=== PATIENT | male | born 1955 | race Caucasian/White ===

== ENCOUNTER 2017-07-13 20:09 | Emergency (ER) | payer BC ==
[~2017-07-13] VITALS: Ht 182.9 cm; Wt 106.8 kg
[2017-07-13 20:13] VITALS: Ht 182.9 cm; Wt 106.8 kg
[2017-07-13] MEDS ORDERED: FLUORESCEIN STRIP RIGHT EYE ONE (20:30)
[2017-07-13 22:16] LABS: BASOPHIL # 0.1 10^3/ul (0.0-0.1); BASOPHILS % 0.6 % (0.0-2.0); EOSINOPHILS # 0.4 10^3/ul (0.0-0.5); EOSINOPHILS % 3.1 % (0.0-7.0); HEMOGLOBIN 15.4 g/dl (14.0-18.0); LYMPHOCYTES # 3.6 10^3/ul (0.8-2.9); LYMPHOCYTES % 29.8 % (15.0-51.0); MEAN CORPUSCULAR HEMOGLOBIN 30.6 pg (29.0-33.0); MEAN CORPUSCULAR HGB CONC 34.2 g/dl (32.0-37.0); MEAN CORPUSCULAR VOLUME 89.3 fl (82.0-101.0); MEAN PLATELET VOLUME 9.4 fl (7.4-10.4); MONOCYTE # 0.8 10^3/ul (0.3-0.9); MONOCYTES % 6.5 % (0.0-11.0); NEUTROPHIL # 7.2 10^3/ul (1.6-7.5); NEUTROPHILS % 59.7 % (39.0-77.0); PLATELET COUNT 240 10^3/UL (140-415); RED BLOOD COUNT 5.04 10^6/ul (4.70-6.10); WHITE BLOOD COUNT 12.1 10^3/ul (4.8-10.8)
[2017-07-13 22:30] LABS: INR 0.99; PROTIME 13.1 Sec (12.2-14.2)
[2017-07-13 22:33] LABS: CALCIUM 9.9 mg/dl (8.4-10.2); CREATININE 0.94 mg/dl (0.61-1.24); POTASSIUM 3.8 mmol/L (3.5-5.1)
--- NOTE | 2017-07-13 22:48 | RADRPT ---
PROCEDURE: US orbits. CLINICAL INDICATION: Visual disturbance with no visual acuity loss or visual field loss. TECHNIQUE: High-resolution sonography of the orbits was performed in the axial and sagittal planes . COMPARISON: None. FINDINGS: There is a linear region of echogenicity posteriorly in the right globe which may be due to retinal detachment or posterior vitreous detachment. There is adjacent vitreous hemorrhage. On the left side, there is no evidence of retinal detachment. However, there are regions of increase d echogenicity posteriorly within the posterior chamber consistent with vitreous hemorrhage. IMPRESSION: 1. Right-sided retinal detachment or posterior vitreous detachment. There is adjacent vitreous hem orrhage. 2. Vitreous hemorrhage on the left with no evidence of retinal detachment. 3. Ophthalmology consultation is advised. Call report: A call report of the findings was made to Dr. Banuelos on 07/13/2017 at 2040 hours RPTAT: QQ .Evaristo Pierce MD, MD Date Time Electronically viewed and signed by .Evaristo Pierce MD, MD on 07/13/2017 22:48 .R/
--- NOTE | 2017-07-13 23:10 | ERD ---
ER Documentation Chief Complaint Date/Time DATE: 07/13/17 TIME: 22:43 Chief Complaint RIGHT CORNER EYE IRRITATION HPI 61-year-old man presents with scintillating scotoma to the peripheral visual field of the right eye lasting for a few seconds multiple times over the course of 3 hours. Last episode occurred at about 7 PM this evening which was about an hour prior to arrival. Patient denies further episodes. He described flickering lights or photo flashes on his right side, and denies previous episodes. Patient denies pain to the eye, no blurry vision, no headache, no neck pain, no difficulty speaking, no weakness in his upper or lower extremities , no difficulty ambulating. Patient denies history of migraines, denies anticoagulant or antiplatelet usage, denies recent Valsalva type maneuvers. Patient is currently asymptomatic. Patient denies chest pain or shortness of breath, no vomiting or nausea, no diarrhea, no abdominal pain. ROS All systems reviewed and are negative except as per history of present illness. Allergies Allergies: Coded Allergies: No Known Allergy (Unverified , 07/13/17) PMhx/Soc Hypertension, wears corrective eyeglasses History of Surgery: No Anesthesia Reaction: No Hx Neurological Disorder: No Hx Respiratory Disorders: No Hx Cardiac Disorders: Yes (HTN) Hx Psychiatric Problems: No Hx Miscellaneous Medical Probl: No Hx Alcohol Use: Yes Hx Substance Use: No Hx Tobacco Use: No Smoking Status: Unknown if ever smoked FmHx Family History: No diabetes Physical Exam Vitals Vital Signs Date Time Temp Pulse Resp B/P Pulse Ox O2 Delivery O2 Flow Rate FiO2 07/13/17 20:13 98.8 73 17 121/92 97 Physical Exam GENERAL: Well-developed, well-nourished, well-hydrated, in no apparent distress , looks nontoxic in appearance HEENT: Moist mucous membranes, pink conjunctiva, no cervical spine tenderness or step-off deformities, no goiter, no jaundice or icterus, extraocular movements intact without pain. No submandibular induration, and no pharyngeal erythema NEURO: Alert and oriented 3, cranial nerves II through XII intact bilaterally, pupils equal round reactive to light, no focal deficits or facial asymmetry, sensation intact distally Strength 5/5 in upper and lower extremities bilaterally CARDIAC: Regular rate and rhythm, no murmurs rubs or gallops LUNGS: Clear bilaterally no wheezing crackles or stridor ABDOMEN: Soft nontender, no guarding, no rigidity, no rebound, no psoas sign no obturator sign. Normoactive bowel sounds SKIN: Warm and dry to touch, no abrasions, contusions, or hematomas, no lacerations, no ecchymosis, no target lesions, and without ulcers EXTREMITIES: No clubbing cyanosis or edema, calves are bilaterally symmetrical, no Homans sign, no popliteal cord sign. Distal pulses equal and bilateral PSYCH: Normal affect without agitation or irritability Result Diagram: 07/13/17214607/13/172146 Results 24 hrs Laboratory Tests Test 07/13/17 21:47 White Blood Count 12.110^3/ul Red Blood Count 5.0410^6/ul Hemoglobin 15.4g/dl Hematocrit 45.0% Mean Corpuscular Volume 89.3fl Mean Corpuscular Hemoglobin 30.6pg Mean Corpuscular Hemoglobin Concent 34.2g/dl Red Cell Distribution Width 13.0% Platelet Count 55110^3/UL Mean Platelet Volume 9.4fl Neutrophils % 59.7% Lymphocytes % 29.8% Monocytes % 6.5% Eosinophils % 3.1% Basophils % 0.6% Nucleated Red Blood Cells % 0.0/100WBC Neutrophils # 7.210^3/ul Lymphocytes # 3.610^3/ul Monocytes # 0.810^3/ul Eosinophils # 0.410^3/ul Basophils # 0.110^3/ul Nucleated Red Blood Cells # 0.010^3/ul Prothrombin Time 13.1Sec Prothrombin Time Ratio 1.0 INR International Normalized Ratio 0.99 Sodium Level 139mmol/L Potassium Level 3.8mmol/L Chloride Level 105mmol/L Carbon Dioxide Level 26mmol/L Anion Gap 12 Blood Urea Nitrogen 14mg/dl Creatinine 0.94mg/dl Glucose Level 116mg/dl Calcium Level 9.9mg/dl Current Medications Medications (Trade) Dose Ordered Sig/Jim Route PRN Reason Start Time Stop Time Status Last Admin Dose Admin Fluorescein Sodium (Xgpxl-L-[id number]) 1 strip ONCE ONCE RIGHT EYE 07/13/17 20:30 07/13/17 20:33 DC Procedures/MDM Visual acuity was formally assessed, visual acuity 20/25 bilaterally. Extraocular movements intact without pain. I performed funduscopic examination of both eyes. Fundus was difficult to visualize but there were no hard yellow exudates visible, vascular fullness was appreciated especially on the right with obvious RBCs in the vitreous, less so on the left. I ordered ultrasound of the orbits: Patient Name Stew Anand Study Date 07/13/2017 8:56 PM Patient 1955 Accession No. [id number] Referring Physician Enrico Bernstein PROCEDURE: US orbits. CLINICAL INDICATION: Visual disturbance with no visual acuity loss or visual field loss. TECHNIQUE: High-resolution sonography of the orbits was performed in the axial and sagittal planes. COMPARISON: None. FINDINGS: There is a linear region of echogenicity posteriorly in the right globe which may be due to retinal detachment or posterior vitreous detachment. There is adjacent vitreous hemorrhage. On the left side, there is no evidence of retinal detachment. However, there are regions of increased echogenicity posteriorly within the posterior chamber consistent with vitreous hemorrhage. IMPRESSION: 1. Right-sided retinal detachment or posterior vitreous detachment. There is adjacent vitreous hemorrhage. 2. Vitreous hemorrhage on the left with no evidence of retinal detachment. 3. Ophthalmology consultation is advised. Call report: A call report of the findings was made to Dr. Bernstein on 2016 at 2040 hours Signed By: Evaristo Pierce MD 07/13/2017 10:48:11 PM CBC electrolytes were normal, coagulation profile normal. Patient has normal physical exam and is asymptomatic at this time, although his symptoms are concerning. Differential diagnoses most likely include posterior vitreous detachment versus vitreous hemorrhage versus retinal break versus retinal detachment, which is the most worrisome of the. Patient may require emergent surgical vitrectomy. I obtained emergent consultation with specialized retinal registered public surveyor out of [facility] [place], Dr. Florentin Bahena phone # [phone]. I spoke to him about the patient's history, presentation, physical exam, and ultrasound findings. He stated patient can be seen at the [facility] tomorrow morning at 8 AM for follow-up with him, for follow-up possible surgical intervention if indicated at that time. He recommended outpatient management, bedrest, and NSAID and exertion avoidance. Differential diagnoses considered, included but not limited to acute coronary syndrome, pulmonary embolism, aortic dissection, abdominal aortic aneurysm, sepsis, stroke, meningitis, encephalitis, posterior vitreous detachment, retinal detachment, vitreous hemorrhage, globe rupture, vitritis, migraine,as well as metabolic, hematologic, and electrolyte abnormalities. As well as abscess, cellulitis, fractures, and dislocations. Patient feels much better at this time, and vital signs are normal, symptoms have improved. I did give strict instructions to return to the ED if symptoms continue or worsen, patient will otherwise follow-up with primary care physician. Patient understood instructions and agreed to plan. Disclaimer: Inadvertent spelling and grammatical errors are likely due to EHR/ dictation software use and do not reflect on the overall quality of patient care. Also, please note that the electronic time recorded on this note does not necessarily reflect the actual time of the patient encounter. Departure Diagnosis: Primary Impression: Posterior vitreous detachment Laterality: bilateral Qualified Code: H43.813 - Posterior vitreous detachment of both eyes Additional Impression: Retinal detachment Laterality: right Qualified Code: H33.21 - Right retinal detachment Condition: Good Patient Instructions: Retinal Detachment Additional Instructions: CALL Dr. Clint Penny Bldg 07/14 8:00am NPO after midnight ENRICO BERNSTEIN MD Jul 13, 2017 23:01
== END 2017-07-13 22:14 | disposition home or self-care (01) ==
LOC: E/R 20:09 → EEVIPCON 20:09 → E/R 22:14
DX: H43.813 Vitreous degeneration, bilateral (principal); H33.21 Serous retinal detachment, right eye; I10 Essential (primary) hypertension
CPT/HCPCS: 76536; 80048; 85025; 85610